=== PATIENT | female | born 1945 | race Caucasian/White ===

== ENCOUNTER 2020-12-22 14:45 | Inpatient (IN) ==
--- NOTE | 2020-12-22 15:19 | Emergency Department Note ---
Neuro HPI General Chief Complaint: Stroke Symptoms Stated Complaint: aphasia this am @ 1100 this AM Time Seen by Provider: 12/22/20 14:55 Source: patient Mode of arrival: ambulatory Limitations: no limitations History of Present Illness HPI Narrative: 75-year-old female with past medical history of CAD with 2 stents , hypertension, COPD, rheumatoid arthritis, and diabetes presenting with aphasia. Patient's daughter noted around 10:30 AM this morning she developed expressive aphasia that lasted for about 90 minutes. Patient recalls the incident and states she knew what she wanted to say but could not get the right words out. Symptoms resolved spontaneously. Patient currently endorses a mild headache. Daughter also feels like her gait has been unsteady today which is new. Patient denies blurry vision, unilateral weakness, paresthesias, chest pain, abdominal pain, nausea, vomiting, dysuria, or melena. Denies any prior history of CVA. She takes a full 325 mg aspirin daily. Not on anticoagulation. No recent cough, fever, chills, or sick contacts. She received the first dose of the Moderna COVID vaccine about 1 month ago. Related Data Home Medications Medication Instructions Recorded Confirmed losartan 25 mg PO BID 06/16/19 12/08/20 pravastatin 80 mg PO HS 06/16/19 12/08/20 carvedilol 12.5 mg tablet 12.5 mg PO Q12H tab 12/08/20 12/08/20 cholecalciferol (vitamin D3) PO 12/08/20 12/08/20 empagliflozin 10 mg tablet 10 mg PO QDAY tab 12/08/20 12/08/20 folic acid PO 12/08/20 12/08/20 furosemide 20 mg tablet 20 mg PO QDAY tab 12/08/20 12/08/20 isosorbide mononitrate 30 mg 30 mg PO QDAY tab 12/08/20 12/08/20 tablet,extended release 24 hr leflunomide 20 mg tablet 20 mg PO QDAY tab 12/08/20 12/08/20 nitroglycerin 0.4 mg sublingual 0.4 mg SUBLINGUAL Q5-15M PRN tab 12/08/20 12/08/20 tablet potassium chloride 10 mEq 10 meq PO QDAY tab 12/08/20 12/08/20 tablet,extended release prednisone 5 mg tablet 5 mg PO QDAY PRN tab 12/08/20 12/08/20 vitamin a PO 12/08/20 Previous Rx's Medication Instructions Recorded conjugated estrogens 0.625 mg/gram 0.625 mg VAGINAL QDAY #30 g 12/08/20 vaginal cream Allergies Allergy/AdvReac Type Severity Reaction Status Date / Time amlodipine Allergy Unknown Unknown Verified 12/22/20 14:49 metformin Allergy Unknown Unknown Verified 12/22/20 14:49 Iodinated Contrast Media AdvReac Mild Sneezing Verified 12/22/20 14:49 rosuvastatin [From Crestor] AdvReac Mild Muscle Pain Verified 12/22/20 14:49 Review of Systems ROS ROS Narrative: Narrative: Constitutional: Reports weakness; Denies fever and chills Eyes: Denies vision change ENT ED: Denies ear pain and throat pain Cardiovascular: Denies chest pain, palpitations, edema and syncope Respiratory: Denies shortness of breath and cough Gastrointestinal: Denies abdominal pain, nausea and vomiting Genitourinary: Denies dysuria and frequency Musculoskeletal: Denies back pain and joint swelling Integumentary: Denies rash and lesions Neurological: Reports headache, weakness and abnormal gait; Denies numbness, paresthesias and dizziness Psychiatric: Denies anxiety and depression Endocrine: Denies fatigue and heat or cold intolerance Hematological/Lymphatic: Denies easy bleeding and easy bruising PFSH Narrative Patient History Narrative: Narrative: Medical/Surgical/Family History All Active Problems (Updated 12/22/20 @ 17:14 by Zoltan Hernandez MD) TIA (transient ischemic attack) (Acute) Gastrocnemius equinus (Acute) Posterior tibial tendon dysfunction, bilateral (Acute) Plantar fascial fibromatosis of right foot (Acute) Overweight (Acute) Osteoporosis (Acute) Obstructive sleep apnea (Acute) Primary osteoarthritis of right knee (Acute) Primary osteoarthritis of hand (Acute) Other chondrocalcinosis, multiple sites (Acute) 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 (Acute) Neck pain (Acute) Microcytic anemia (Acute) Kidney stone (Acute) Intestinal bleeding (Acute) Heart attack (Acute) Gall bladder disease (Acute) Emphysema lung (Acute) Dizzy spells (Acute) Chest pain (Acute) Diverticulitis (Acute) Cataract (Acute) Psoriasis (Acute) Lumbago (Acute) CAD (coronary artery disease) (Acute) Thalassemia minor (Acute) Hyperlipidemia (Acute) Fatigue (Acute) Rheumatoid arthritis (Chronic) Diabetes mellitus, type II (Chronic) COPD (chronic obstructive pulmonary disease) (Chronic) CVD (cardiovascular disease) (Chronic) Hypertension (Chronic) Aphthous ulcer (Chronic) Head injury (Chronic) Fall (Chronic) Unstable angina pectoris (Chronic) Medical History (Updated 12/22/20 @ 17:14 by Zoltan Hernandez MD) Aphthous ulcer CAD (coronary artery disease) Cataract Chest pain COPD (chronic obstructive pulmonary disease) CVD (cardiovascular disease) Diabetes mellitus, type II Diverticulitis Dizzy spells Emphysema lung Fall Fatigue Gall bladder disease Gastrocnemius equinus bilateral Head injury Heart attack History of breast implant removal History of left heart catheterization Hyperlipidemia Hypertension Intestinal bleeding Kidney stone Lumbago Microcytic anemia Neck pain 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 Obstructive sleep apnea Osteoporosis Other chondrocalcinosis, multiple sites Overweight 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 tendon dysfunction, bilateral Primary osteoarthritis of hand Primary osteoarthritis of right knee Psoriasis Rheumatoid arthritis Thalassemia minor Unstable angina pectoris Surgical History (Updated 12/10/20 @ 15:57 by Jaimee Starr) History of adenoidectomy History of appendectomy History of arthroscopy of both knees History of bilateral oophorectomy History of breast augmentation History of bunionectomy History of cataract extraction History of cholecystectomy 2018 History of colectomy History of colonoscopy (~02/22/18) History of fusion of cervical spine History of heart artery stent x2 History of right heart catheterization History of tonsillectomy History of total abdominal hysterectomy History of total left knee replacement Family History (Updated 12/08/20 @ 15:42 by Esvin Castro MD) Mother Diabetes mellitus, type I CAD (coronary artery disease) Father Hypertension Stroke Brother Myocardial infarct Social History Smoking Status: Former smoker (16 year pack history) Alcohol Intake Frequency: holiday/special occasion only Substance Use: marijuana (takes an edible at night occasionally) Exam Narrative Narrative: Narrative: General Limitations: no limitations General appearance: Present alert and in no apparent distress Head Head: Present atraumatic and normocephalic Eye Eye: Present normal appearance, PERRL and EOMI; Absent scleral icterus and conjunctival injection ENT ENT: Present normal oropharynx and mucous membranes moist Neck Neck: Present full ROM and trachea midline; Absent meningismus, lymphadenopathy and thyromegaly Chest Chest: Present symmetric chest wall rise Respiratory Respiratory: Present normal lung sounds bilaterally; Absent respiratory distress, wheezes, stridor, accessory muscle use and prolonged expiratory phase Cardiovascular Cardiovascular: Present regular rate and normal rhythm; Absent systolic murmur and diastolic murmur Adbominal Abdominal: Present soft; Absent distention, tenderness, guarding, rebound, rigidity, organomegaly and mass Extremities Extremities: Absent pedal edema, pretibial edema and calf tenderness Back Back: Absent CVA tenderness (R), CVA tenderness (L) and spinous process tenderness Neurological Neurological: Present alert, oriented X3 and CN II-XII intact Expanded Neurological Patient oriented to: Present person, place and time Speech: Present fluid speech; Absent expressive aphasia, slurred and dysarthria CEREBELLAR FUNCTION: finger to nose: Normal and heel to alford: Normal CEREBELLAR FUNCTION: other (+mild gait ataxia) Motor strength - LUE: 5/5 Motor strength - RUE: 5/5 Motor strength - LLE: 5/5 Motor strength - RLE: 5/5 UPPER MOTOR NEURON EXAM: michelle neglect: Normal SENSORY EXAM UPPER EXTREMITY: Abnormal Left: light touch SENSORY EXAM LOWER EXTREMITY: Normal: light touch Coma Scale Eye Opening: Spontaneous Coma Scale Motor Response: Obeys Commands Coma Scale Verbal Response: Oriented Coma Scale Total: 15 Psychiatric Psychiatric: Present normal affect and normal mood Skin Skin: Present warm (WNL) and dry Course Consultations Consultation #1: Dr. Salgado, neurology: agrees with admission for TIA workup Time: 16:03 Consultation #2: Dr. Andres, hospitalist Time: 16:23 Vital Signs Vital signs: Vital Signs Temperature 98.1 F 12/22/20 14:46 Pulse Rate 75 12/22/20 14:46 Respiratory Rate 18 12/22/20 14:46 Blood Pressure 141/86 12/22/20 14:46 Pulse Oximetry (%) 97 12/22/20 14:46 Temperature 98.1 F 12/22/20 14:46 Pulse Rate 73 12/22/20 17:06 Respiratory Rate 18 12/22/20 14:46 Blood Pressure 109/84 12/22/20 17:01 Pulse Oximetry (%) 95 12/22/20 17:06 [facility] Narrative Medical decision making narrative: 75-year-old female presenting with transient aphasia. Symptoms have now resolved and she is at her neurologic baseline. CT brain without contrast shows no acute findings. Labs within normal limits. Discussed with Dr. Damian of neurology who agrees with admission for TIA work-up. Patient endorsed to Dr. Andres asked for admission. Lab Data Lab results reviewed: Yes I reviewed the patient's lab results. Result diagrams: 12/22/20 15:37 12/22/20 15:07 Labs: Lab Results 12/22/20 12/22/20 12/22/20 Range/Units 15:07 15:37 15:37 WBC 5.5 (4.5-11.0) K/mcL RBC 5.48 H (3.59-5.38) M/mcL Hgb 11.7 (11.2-15.7) g/dL Hct 37.7 (34.1-44.9) % MCV 68.8 L (80.0-100.0) fL MCH 21.4 L (26.0-34.0) pg MCHC 31.0 (31.0-36.0) g/dL RDW 16.4 H (11.5-14.5) % Plt Count 166 (140-440) K/mcL MPV (7.4-10.4) fL Neut % (Auto) 46.3 (38.0-78.0) % Lymph % (Auto) 29.5 (15.5-49.0) % [place] % (Auto) 18.9 H (1.0-12.0) % Eos % (Auto) 3.8 (0.0-7.0) % Baso % (Auto) 1.5 (0.0-2.0) % Lymph # (Auto) 1.62 (1.50-4.80) K/mcL [place] # (Auto) 1.04 H (0.10-0.90) K/mcL Eos # (Auto) 0.21 (0.00-0.70) K/mcL Baso # (Auto) 0.08 (0.00-0.30) K/mcL Absolute Neutrophils 2.54 (1.80-8.00) K/mcL Sodium 139 (133-145) mmol/L Potassium 3.6 (3.3-5.1) mmol/L Chloride 101 (96-108) mmol/L Carbon Dioxide 24 (22-30) mmol/L Anion Gap 14.0 (8.0-16.0) BUN 16 (8-23) mg/dL Creatinine 0.7 (0.6-1.1) mg/dL GFR Calculation 85 Glucose 111 H (70-105) mg/dL Calcium 9.2 (8.6-10.4) mg/dL Total Bilirubin 0.2 (0.1-1.0) mg/dL AST 17 (<32) U/L ALT 17 (<40) U/L Alkaline Phosphatase 91 (39-117) U/L Troponin T < 0.01 (<0.03) ng/mL Total Protein 6.8 (5.9-8.4) gm/dL Albumin 4.1 (3.2-5.2) gm/dL Globulin 2.7 (2.2-3.7) gm/dL Albumin/Globulin Ratio 1.5 (1.0-2.3) Urine Color Urine Appearance (Clear) Urine pH (5.0-9.0) Ur Specific [place] (1.000-1.035) Urine Protein (Negative) mg/dL Urine Glucose (UA) (Negative) mg/dL Urine Ketones (Negative) mg/dL Urine Occult Blood (Negative) mg/dL Urine Nitrate (Negative) Urine Bilirubin (Negative) mg/dL Urine Urobilinogen mg/dL Ur Leukocyte Esterase (Negative) /uL Urine RBC (0-3) /hpf Urine WBC (0-4) /hpf Ur Squamous Epith Cells (0-4) /hpf Urine Bacteria (0) /hpf Urine Mucus (None) /hpf Ur Culture Indicated? 12/22/20 Range/Units 15:40 WBC (4.5-11.0) K/mcL RBC (3.59-5.38) M/mcL Hgb (11.2-15.7) g/dL Hct (34.1-44.9) % MCV (80.0-100.0) fL MCH (26.0-34.0) pg MCHC (31.0-36.0) g/dL RDW (11.5-14.5) % Plt Count (140-440) K/mcL MPV (7.4-10.4) fL Neut % (Auto) (38.0-78.0) % Lymph % (Auto) (15.5-49.0) % [place] % (Auto) (1.0-12.0) % Eos % (Auto) (0.0-7.0) % Baso % (Auto) (0.0-2.0) % Lymph # (Auto) (1.50-4.80) K/mcL [place] # (Auto) (0.10-0.90) K/mcL Eos # (Auto) (0.00-0.70) K/mcL Baso # (Auto) (0.00-0.30) K/mcL Absolute Neutrophils (1.80-8.00) K/mcL Sodium (133-145) mmol/L Potassium (3.3-5.1) mmol/L Chloride (96-108) mmol/L Carbon Dioxide (22-30) mmol/L Anion Gap (8.0-16.0) BUN (8-23) mg/dL Creatinine (0.6-1.1) mg/dL GFR Calculation Glucose (70-105) mg/dL Calcium (8.6-10.4) mg/dL Total Bilirubin (0.1-1.0) mg/dL AST (<32) U/L ALT (<40) U/L Alkaline Phosphatase (39-117) U/L Troponin T (<0.03) ng/mL Total Protein (5.9-8.4) gm/dL Albumin (3.2-5.2) gm/dL Globulin (2.2-3.7) gm/dL Albumin/Globulin Ratio (1.0-2.3) Urine Color Straw Urine Appearance Clear (Clear) Urine pH 6.0 (5.0-9.0) Ur Specific [place] 1.014 (1.000-1.035) Urine Protein Negative (Negative) mg/dL Urine Glucose (UA) >=500 A (Negative) mg/dL Urine Ketones Negative (Negative) mg/dL Urine Occult Blood Negative (Negative) mg/dL Urine Nitrate Negative (Negative) Urine Bilirubin Negative (Negative) mg/dL Urine Urobilinogen Negative mg/dL Ur Leukocyte Esterase Negative (Negative) /uL Urine RBC 0 (0-3) /hpf Urine WBC < 1 (0-4) /hpf Ur Squamous Epith Cells < 1 (0-4) /hpf Urine Bacteria None (0) /hpf Urine Mucus Few A (None) /hpf Ur Culture Indicated? No Radiology Data Radiology results reviewed: Yes I reviewed the patient's radiology results. Radiology results narrative: Ordering Physician: Zoltan Hernandez M.D. Date of Service: 12/22/20 Procedure(s): CT head/brain wo con Accession Number(s): [id number] CLINICAL INFORMATION: Transient aphasia COMPARISON: None. TECHNIQUE: 2.5 mm helical slices were obtained in the skull base to vertex. Following reconstruction, axial reformatted images were reviewed at bone and parenchymal windows. The exam was performed using radiation dose optimization techniques including, but not limited to, automated exposure control, adjustment of the mA and/or kV according to patient size and use of iterative reconstruction technique. FINDINGS: The ventricles, sulci, fissures, and cisterns are symmetrically enlarged compatible with mild age-related atrophy. No extra-axial fluid collections are identified. Mild patchy chronic ischemic changes, in the deep cerebral white matter, are expected for age. There is no hemorrhage, mass effect, or edema. Bone windows show no osseous abnormality. IMPRESSION: Mild atrophy and chronic ischemic changes in the deep cerebral white matter-expected for age. No acute findings Interpreted and Authenticated by: Reid Saravia 12/22/20 Ordering Physician: Zoltan Hernandez M.D. Date of Service: 12/22/20 Procedure(s): XR chest 2V Accession Number(s): [id number] CLINICAL INFORMATION: aphasia, hx of CAD COMPARISON: 10/09/2020 FINDINGS: Heart size, mediastinum and pulmonary vessels are unremarkable. Partially calcified benign nodule in the anterior segment right upper lobe has maintained stability should be considered a benign granuloma.. No other pulmonary abnormalities. No effusions. IMPRESSION: Negative chest Interpreted and Authenticated by: Reid Saravia 12/22/20 EKG Data EKG #1: EKG attestation: Yes I reviewed and interpreted this EKG. and Yes There are no EKG findings of acute coronary syndrome EKG results narrative: Normal sinus rhythm at [address] elevations or T wave inversions. Normal QRS. Interpretation: no acute changes and normal EKG Pulse Oximetry Data Pulse Ox %: 97 Interpretation: normal Discharge Plan Patient/Caregiver Discharge Instructions Pt seen by [facility]ILER REPAIRMAN/PA only: No Clinical Impression: TIA (transient ischemic attack) Patient Disposition: Xfer As Inpt ([facility]) Condition: Fair Follow up with: Esvin Castro MD [Primary Care Provider] - Prescriptions: No Action carvedilol 12.5 mg tablet 12.5 mg PO Q12H RF: 0 furosemide 20 mg tablet 20 mg PO QDAY RF: 0 potassium chloride 10 mEq tablet extended release 10 meq PO QDAY RF: 0 nitroglycerin 0.4 mg tablet, sublingual 0.4 mg sublingual Q5-15M PRN (Reason: chest pain) RF: 0 Jardiance 10 mg tablet 10 mg PO QDAY RF: 0 leflunomide 20 mg tablet 20 mg PO QDAY RF: 0 isosorbide mononitrate 30 mg tablet extended release 24 hr 30 mg PO QDAY RF: 0 folic acid PO RF: 0 cholecalciferol (vitamin D3) PO RF: 0 vitamin a PO RF: 0 prednisone 5 mg tablet 5 mg PO QDAY PRNRF: 0 Premarin 0.625 mg/gram cream 0.625 mg vaginal QDAY Qty: 30 RF: 0 losartan 25 MG tablet 25 mg PO BID RF: 0 pravastatin 40 MG tablet 80 mg PO HS RF: 0
--- NOTE | 2020-12-22 15:48 | XRay Report ---
CLINICAL INFORMATION: aphasia, hx of CAD COMPARISON: 10/09/2020 FINDINGS: Heart size, mediastinum and pulmonary vessels are unremarkable. Partially calcified benign nodule in the anterior segment right upper lobe has maintained stability should be considered a benign granuloma.. No other pulmonary abnormalities. No effusions. IMPRESSION: Negative chest Interpreted and Authenticated by: Reid Saravia 12/22/20
--- NOTE | 2020-12-22 15:49 | Cat Scan Report ---
CLINICAL INFORMATION: Transient aphasia COMPARISON: None. TECHNIQUE: 2.5 mm helical slices were obtained in the skull base to vertex. Following reconstruction, axial reformatted images were reviewed at bone and parenchymal windows. The exam was performed using radiation dose optimization techniques including, but not limited to, automated exposure control, adjustment of the mA and/or kV according to patient size and use of iterative reconstruction technique. FINDINGS: The ventricles, sulci, fissures, and cisterns are symmetrically enlarged compatible with mild age-related atrophy. No extra-axial fluid collections are identified. Mild patchy chronic ischemic changes, in the deep cerebral white matter, are expected for age. There is no hemorrhage, mass effect, or edema. Bone windows show no osseous abnormality. IMPRESSION: Mild atrophy and chronic ischemic changes in the deep cerebral white matter-expected for age. No acute findings Interpreted and Authenticated by: Reid Saravia 12/22/20
[2020-12-22 16:26] LABS: Appearance,Urine CLEAR (Clear); Bilirubin,Urine Negative (Negative); Color,Urine STRAW; Culture Indicated,Urine No; Glucose,Urine (UA) >=500 mg/dL (Negative); Ketones,Urine Negative (Negative); Leukocyte Esterase,Urine Negative /uL (Negative); Mucus,Urine FEW /hpf; Nitrate,Urine Negative (Negative); Protein,Urine Negative (Negative); Specific Gravity,Urine 1.014 (1.000-1.035); Urine Blood Negative (Negative); Urine RBC 0 /hpf (0-3); Urine Squamous Epithelial Cell < 1 /hpf (0-4); Urine WBC < 1 /hpf (0-4); Urobilinogen,Urine Negative
[2020-12-22 16:29] LABS: ALT/SGPT 17 U/L (<40); AST/SGOT 17 U/L (<32); Albumin 4.1 gm/dL (3.2-5.2); Albumin/Globulin Ratio 1.5 (1.0-2.3); Alkaline Phosphatase 91 U/L (39-117); Bilirubin,Total 0.2 mg/dL (0.1-1.0); Blood Urea Nitrogen 16 mg/dL (8-23); Calcium 9.2 mg/dL (8.6-10.4); Carbon Dioxide 24 mmol/L (22-30); Chloride 101 mmol/L (96-108); Globulin 2.7 gm/dL (2.2-3.7); Glomerular Filtration Rate 85; Glucose 111 mg/dL (70-105)
[2020-12-22 16:39] LABS: Basophils # (Auto) 0.08 K/mcL (0.00-0.30); Basophils % (Auto) 1.5 % (0.0-2.0); Eosinophils # (Auto) 0.21 K/mcL (0.00-0.70); Eosinophils % (Auto) 3.8 % (0.0-7.0); Hematocrit 37.7 % (34.1-44.9); Hemoglobin 11.7 g/dL (11.2-15.7); Lymphocytes # (Auto) 1.62 K/mcL (1.50-4.80); Lymphocytes % (Auto) 29.5 % (15.5-49.0); Mean Cell Volume 68.8 fL (80.0-100.0); Monocytes # (Auto) 1.04 K/mcL (0.10-0.90); Monocytes % (Auto) 18.9 % (1.0-12.0); Neutrophils % (Auto) 46.3 % (38.0-78.0); Platelet Count 166 K/mcL (140-440); RBC 5.48 M/mcL (3.59-5.38); Red Cell Distribution Width 16.4 % (11.5-14.5); WBC 5.5 K/mcL (4.5-11.0)
--- NOTE | 2020-12-22 16:42 | Internal Med History&Physical ---
HPI History of Present Illness Patient information: Note initiated : 12/22/20 at 4:38 pm Service Date, if different from initiated Date: [] Patient: Itzel Buckley 75 y/o F admitted on for aphasia this am @ 1100 this AM. Chief Complaint: [aphasia ] History of present illness: Ms. Charles Mccoy is a 75 year old female with a history of hypertension, type II diabetes mellitus, rheumatoid arthritis, coronary artery disease s/p stent, thalassemia minor, obstructive sleep apnea currently no on CPAP who presented to the ED for expressive aphasia that started this morning at about 10:30 AM and lasted about one hour. Yesterday the patient had a milder episode, she also had some difficulty walking that resolved. The patient is accompanied by her daughter who witnessed the expressive aphasia today. In the ED, the patient had a noncontrast CT head which did not show any acute changes, there was mild atrophy and chronic ischemic changes in the deep cerebral white matter expected for age. A chest x-ray was negative. CBC and chemistry panel were similar to prior results. The patient does not have a history of stroke, she says that she takes a daily aspirin 325 mg per day. She denies palpitations, chest pain, lightheadedness. She did have a recent headache that resolved. Hospital medicine was asked to admit the patient for TIA evaluation. We discussed the usual work-up for TIA, the patient is not sure if she wants to have an MRI brain due to cost. She is okay with echo and carotid artery ultrasound as well as a slurry man. Review of symptoms Constitutional: no fever, fatigue, or weight loss Eyes: no vision changes or pain Cardiovascular: no chest pain, no palpitations Respiratory: no cough or dyspnea Gastrointestinal: no abdominal pain, no nausea, vomiting, or diarrhea Genitourinary: no dysuria or difficulty voiding Musculoskeletal: no arthralgia or myalgia Integumentary: no skin lesion or wound Neurological: Positive for expressive aphasia and ataxia that have resolved. Psychiatric: no anxiety or depression Physical exam Head: Atraumatic, normal inspection. Eyes: normal appearance, no scleral icterus. Neck: full ROM Respiratory: no respiratory distress. Cardiovascular: normal rate and rhythm, S1, S2. GI/Abdominal: soft, nontender, no guarding. Extremities: full range of motion, nontender. Neurological: CN II-XII intact, intact motor, intact sensation. Psychiatric: normal mood. Skin: warm, normal color PFSH PFSH All Active Problems (Updated 12/22/20 @ 17:14 by Zoltan Hernandez MD) TIA (transient ischemic attack) (Acute) Gastrocnemius equinus (Acute) Posterior tibial tendon dysfunction, bilateral (Acute) Plantar fascial fibromatosis of right foot (Acute) Overweight (Acute) Osteoporosis (Acute) Obstructive sleep apnea (Acute) Primary osteoarthritis of right knee (Acute) Primary osteoarthritis of hand (Acute) Other chondrocalcinosis, multiple sites (Acute) 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 (Acute) Neck pain (Acute) Microcytic anemia (Acute) Kidney stone (Acute) Intestinal bleeding (Acute) Heart attack (Acute) Gall bladder disease (Acute) Emphysema lung (Acute) Dizzy spells (Acute) Chest pain (Acute) Diverticulitis (Acute) Cataract (Acute) Psoriasis (Acute) Lumbago (Acute) CAD (coronary artery disease) (Acute) Thalassemia minor (Acute) Hyperlipidemia (Acute) Fatigue (Acute) Rheumatoid arthritis (Chronic) Diabetes mellitus, type II (Chronic) COPD (chronic obstructive pulmonary disease) (Chronic) CVD (cardiovascular disease) (Chronic) Hypertension (Chronic) Aphthous ulcer (Chronic) Head injury (Chronic) Fall (Chronic) Unstable angina pectoris (Chronic) Medical History (Updated 12/22/20 @ 17:14 by Zoltan Hernandez MD) Aphthous ulcer CAD (coronary artery disease) Cataract Chest pain COPD (chronic obstructive pulmonary disease) CVD (cardiovascular disease) Diabetes mellitus, type II Diverticulitis Dizzy spells Emphysema lung Fall Fatigue Gall bladder disease Gastrocnemius equinus bilateral Head injury Heart attack History of breast implant removal History of left heart catheterization Hyperlipidemia Hypertension Intestinal bleeding Kidney stone Lumbago Microcytic anemia Neck pain 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 Obstructive sleep apnea Osteoporosis Other chondrocalcinosis, multiple sites Overweight 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 tendon dysfunction, bilateral Primary osteoarthritis of hand Primary osteoarthritis of right knee Psoriasis Rheumatoid arthritis Thalassemia minor Unstable angina pectoris Surgical History (Updated 12/10/20 @ 15:57 by Jaimee Starr) History of adenoidectomy History of appendectomy History of arthroscopy of both knees History of bilateral oophorectomy History of breast augmentation History of bunionectomy History of cataract extraction History of cholecystectomy 2018 History of colectomy History of colonoscopy (~02/22/18) History of fusion of cervical spine History of heart artery stent x2 History of right heart catheterization History of tonsillectomy History of total abdominal hysterectomy History of total left knee replacement Family History (Updated 12/08/20 @ 15:42 by Esvin Castro MD) Mother Diabetes mellitus, type I CAD (coronary artery disease) Father Hypertension Stroke Brother Myocardial infarct Social History (Updated 12/08/20 @ 15:17 by Michelle Esparza CMA) household members: spouse and family housing: house lives independently: Yes marital status: 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 smoking status: Former smoker smoking status stop date: 07/29/82 alcohol intake frequency: holiday/special occasion only substance use type: marijuana (takes an edible at night occasionally) MEDS/ALLERGIES Home Medications and Allergies Home Medications Medication Instructions Recorded Confirmed Type losartan 25 mg PO BID 06/16/19 12/22/20 History pravastatin 80 mg PO HS 06/16/19 12/08/20 History conjugated estrogens 0.625 mg/gram 0.625 mg VAGINAL QDAY #30 g 12/08/20 12/08/20 Rx vaginal cream empagliflozin 10 mg tablet 10 mg PO QDAY tab 12/08/20 12/08/20 History folic acid PO 12/08/20 12/08/20 History isosorbide mononitrate 30 mg 30 mg PO QDAY tab 12/08/20 12/08/20 History tablet,extended release 24 hr leflunomide 20 mg tablet 20 mg PO QDAY tab 12/08/20 12/22/20 History nitroglycerin 0.4 mg sublingual 0.4 mg SUBLINGUAL Q5-15M PRN tab 12/08/20 12/08/20 History tablet potassium chloride 10 mEq 10 meq PO QDAY tab 12/08/20 12/22/20 History tablet,extended release aspirin [Aspir-81] 81 mg PO QDAY 12/22/20 12/22/20 History carvedilol 25 mg PO BID 12/22/20 12/22/20 History empagliflozin [Jardiance] 10 mg PO DAILY 12/22/20 12/22/20 History furosemide [Lasix] 20 mg PO QAM 12/22/20 12/22/20 History Allergies Allergy/AdvReac Type Severity Reaction Status Date / Time amlodipine Allergy Unknown Unknown Verified 12/22/20 14:49 metformin Allergy Unknown Unknown Verified 12/22/20 14:49 Iodinated Contrast Media AdvReac Mild Sneezing Verified 12/22/20 14:49 rosuvastatin [From Crestor] AdvReac Mild Muscle Pain Verified 12/22/20 14:49 EXAM Constitutional Vitals: Temp Pulse Resp BP Pulse Ox 98.1 F 75 18 127/96 94 12/22/20 14:46 12/22/20 14:46 12/22/20 14:46 12/22/20 16:27 12/22/20 16:27 DATA Data Completed and Pending Labs: Labs from last 24 hours 12/22/20 12/22/20 12/22/20 15:40 15:37 15:37 WBC Pending RBC Pending Hgb Pending Hct Pending MCV Pending MCH Pending MCHC Pending RDW Pending Plt Count Pending MPV Pending Neut % (Auto) Pending Sodium Potassium Chloride Carbon Dioxide Anion Gap BUN Creatinine GFR Calculation Glucose Calcium Total Bilirubin AST ALT Alkaline Phosphatase Troponin T < 0.01 Total Protein Albumin Globulin Albumin/Globulin Ratio Urine Color Straw Urine Appearance Clear Urine pH 6.0 Ur Specific [place] 1.014 Urine Protein Negative Urine Glucose (UA) >=500 A Urine Ketones Negative Urine Occult Blood Negative Urine Nitrate Negative Urine Bilirubin Negative Urine Urobilinogen Negative Ur Leukocyte Esterase Negative Urine RBC 0 Urine WBC < 1 Ur Squamous Epith Cells < 1 Urine Bacteria None Urine Mucus Few A Ur Culture Indicated? No 12/22/20 15:07 WBC RBC Hgb Hct MCV MCH MCHC RDW Plt Count MPV Neut % (Auto) Sodium 139 Potassium 3.6 Chloride 101 Carbon Dioxide 24 Anion Gap 14.0 BUN 16 Creatinine 0.7 GFR Calculation 85 Glucose 111 H Calcium 9.2 Total Bilirubin 0.2 AST 17 ALT 17 Alkaline Phosphatase 91 Troponin T Total Protein 6.8 Albumin 4.1 Globulin 2.7 Albumin/Globulin Ratio 1.5 Urine Color Urine Appearance Urine pH Ur Specific [place] Urine Protein Urine Glucose (UA) Urine Ketones Urine Occult Blood Urine Nitrate Urine Bilirubin Urine Urobilinogen Ur Leukocyte Esterase Urine RBC Urine WBC Ur Squamous Epith Cells Urine Bacteria Urine Mucus Ur Culture Indicated? A/P Narrative A/P Narrative: Assessment: 75 year old female with a history of CAD s/p stents, hypertension, RA, OLIVIA admitted after an episode of expressive aphasia that lasted about one hour and resolved. The patient has a similar but milder episode the day prior to admission. #Transient ischemic attack less likely small ischemic stroke #Resolved expressive aphasia #Resolved ataxia #Hypertension #Diabetes mellitus #CAD s/p stents, stable #Rheumatoid arthritis #Obstructive sleep apnea not on CPAP at home Plan -PCU status for neuro checks/NIH Stroke Scale -Plavix 75 mg daily, hold home Aspirin. -Continue home Pravastatin. -Permissive blood pressure for now, Labetalol IV prn for extreme BP. -Continue home Jardiance, Lasix, Leflunomide, Imdur, and Nitro prn. -Hold home Coreg and Losartan. -The patient will consider MRI brain to evaluate for small infarct. -TTE ordered. -Lipid panel in AM, recent Hgb A1C was 5.9 -hop weigher -DVT ppx: Lovenox -Code status: Full -Disposition: home when stable, outpatient slurry man if no afib/aflutter events noted during the hospital stay. Time Spent With Patient Time: Total time spent is greater than 50% in coordination of care (as documented) at patient's floor/unit and/or counseling patient: QUALITY Stroke Symptom Onset Unknown: No
[2020-12-22] MEDS ORDERED: IOPAMIDOL 100 ML BOTTLE IV ONE (19:44)
[2020-12-22] MEDS ORDERED: ONDANSETRON 4 MG/2 ML VIAL IV PRN (20:01)
[2020-12-22] MEDS ORDERED: LACTULOSE 20 GM/30 ML ORAL.SOL PO PRN (20:01)
[2020-12-22] MEDS ORDERED: LABETALOL 5 MG/ML ML IV PRN (20:01)
[2020-12-22] MEDS ORDERED: SENNOSIDES 1 TABLET PO PRN (20:01)
[2020-12-22] MEDS ORDERED: NITROGLYCERIN 0.4 MG TAB.SUBL SL PRN (20:29)
[2020-12-22] MEDS ORDERED: PRAVASTATIN 40 MG TABLET PO SCH (21:00)
[2020-12-22] MEDS: DOCUSATE SODIUM 100 MG CAPSULE PO SCH (21:41)
[2020-12-22] MEDS: CLOPIDOGREL 75 MG TABLET PO SCH (21:45)
[2020-12-22] MEDS: SIMVASTATIN 40 MG TABLET PO SCH (21:45)
[2020-12-22] MEDS: 0.9 % SODIUM CHLORIDE 10 ML SYRINGE IV SCH (21:45)
--- NOTE | 2020-12-23 02:23 | Ultrasound Report ---
CLINICAL INFORMATION: TIA COMPARISON: None. TECHNIQUE: Spectral Doppler velocity measurements were obtained in the proximal, mid and distal common and internal carotid, both vertebral and proximal external carotid arteries bilaterally. Supplemental color and power Doppler imaging was also obtained to optimize stenosis detection. In reporting, any internal carotid stenosis was indirectly quantified comparing the distal internal carotid velocity. For ratio comparison, the internal carotid artery, at the level of stenosis, was utilized in the numerator and the normal distal internal carotid artery velocity was utilized as the denominator. Velocities are validated with angiographic measurements extrapolated from diameter data - as defined by the Society of Radiologists in Ultrasound Consensus Conference .Radiology 2003; 229; 340 - 346. FINDINGS: See worksheet by the technologist for velocities in PACS IMPRESSION: 1. Right common and external carotid arteries are widely patent. Mild elevation of the right internal carotid velocity corresponds with 50% stenosis. This is likely spuriously elevated due to vessel tortuosity. 2. The left common and external carotid arteries are widely patent. Systolic blood velocity elevations in the internal carotid artery corresponding with a 50% stenosis. This is likely related to tortuosity however. With patient history of TIA, suggest CT cervical carotid arteriogram for better evaluation Please correlate with CTA CT Angiography or MRA MR Angiography if surgery is contemplated. Interpreted and Authenticated by: Reid Saravia 12/23/20
[2020-12-23] MEDS: 0.9 % SODIUM CHLORIDE 10 ML SYRINGE IV SCH ×3 (06:21→21:11)
[2020-12-23 07:35] LABS: ALT/SGPT 13 U/L (<40); AST/SGOT 13 U/L (<32); Albumin 3.9 gm/dL (3.2-5.2); Albumin/Globulin Ratio 1.7 (1.0-2.3); Alkaline Phosphatase 70 U/L (39-117); Bilirubin,Direct < 0.2 mg/dL (0-0.3); Bilirubin,Total 0.2 mg/dL (0.1-1.0); Blood Urea Nitrogen 18 mg/dL (8-23); Calcium 8.9 mg/dL (8.6-10.4); Carbon Dioxide 24 mmol/L (22-30); Chloride 105 mmol/L (96-108); Globulin 2.3 gm/dL (2.2-3.7); Glomerular Filtration Rate 89; Glucose 93 mg/dL (70-105); HDL Cholesterol 60 mg/dL (>40); LDL Cholesterol,Calculated 94 mg/dL (<100); Lactate Dehydrogenase 146 U/L (135-225); Non-HDL Cholesterol 110 mg/dL (<130); Phosphorous 2.9 mg/dL (2.5-4.5); Triglycerides 82 mg/dL (<150); Uric Acid 1.9 mg/dL (2.5-8.0)
[2020-12-23] MEDS: ACETAMINOPHEN 325 MG TABLET PO PRN ×2 (08:36→21:10)
[2020-12-23] MEDS: CLOPIDOGREL 75 MG TABLET PO SCH (08:37)
[2020-12-23] MEDS: POTASSIUM CHLORIDE 10 MEQ TABLET PO SCH (08:37)
[2020-12-23] MEDS: FUROSEMIDE 20 MG TABLET PO SCH (08:37)
[2020-12-23] MEDS: ENOXAPARIN 40 MG/0.4 ML SYRINGE SQ SCH (08:37)
[2020-12-23] MEDS: ASPIRIN 81 MG TAB.CHEW PO SCH (08:37)
[2020-12-23] MEDS: DOCUSATE SODIUM 100 MG CAPSULE PO SCH ×2 (08:38→21:01)
[2020-12-23] MEDS ORDERED: ISOSORBIDE MONONITRATE 30 MG TAB.XL.24H PO SCH (09:00)
[2020-12-23] MEDS ORDERED: methylPREDNISolone SOD SUCC 40 MG/ML VIAL IV ONE ×2 (10:04→15:00)
[2020-12-23] MEDS ORDERED: diphenhydrAMINE 50 MG/ML VIAL IV ONE ×3 (10:04→15:00)
[2020-12-23] MEDS: Empagliflozin 10 mg tablet PO SCH (10:06)
[2020-12-23] MEDS: CARVEDILOL 12.5 MG TABLET PO SCH ×2 (10:38→11:12)
[2020-12-23] MEDS: LOSARTAN 25 MG TABLET PO SCH ×2 (10:38→21:10)
[2020-12-23] MEDS ORDERED: CARVEDILOL 12.5 MG TABLET PO ONE (10:54)
[2020-12-23] MEDS: LEFLUNOMIDE 20 MG TABLET PO SCH (11:13)
--- NOTE | 2020-12-23 12:06 | Magnetic Resonance Report ---
CLINICAL INFORMATION: TIA expressive aphasia COMPARISON: None. TECHNIQUE:Sagittal T1 FLAIR, T2 FLAIR propeller, delayed diffusion, and ADC weighted images were acquired. FINDINGS: The ventricles, sulci, fissures and cisterns are symmetrically enlarged compatible with mild age-related atrophy. No Extra-axial fluid collections or mass are appreciated. Scattered chronic ischemic foci in the cerebral white matter are expected for age. There are no regions of restricted diffusion, edema, mass effect or hemorrhage. Signal void in intracerebral arteries, extra-axial cranial nerves, pituitary and orbits are normal. Moderate mucosal thickening left maxillary sinus appreciated IMPRESSION: Mild atrophy and scattered chronic ischemic foci in the deep cerebral white matter-typical for age. No evidence of acute infarct. Mild left maxillary sinusitis Interpreted and Authenticated by: Reid Saravia 12/23/20
--- NOTE | 2020-12-23 13:01 | Internal Med Progress Note ---
SUBJECTIVE Subjective Patient information: Note initiated : 12/23/20 at 12:54 pm Service Date, if different from initiated Date: [] Patient: Itzel Buckley 75 y/o F admitted on 12/22/20 for aphasia this am @ 1100 this AM. Chief Complaint: [] Interval history: History of present illness: Ms. Charles Mccoy is a 75 year old female with a history of hypertension, type II diabetes mellitus, rheumatoid arthritis, coronary artery disease s/p stent, thalassemia minor, obstructive sleep apnea currently no on CPAP who presented to the ED for expressive aphasia that started this morning at about 10:30 AM and lasted about one hour. Yesterday the patient had a milder episode, she also had some difficulty walking that resolved. The patient is accompanied by her daughter who witnessed the expressive aphasia today. In the ED, the patient had a noncontrast CT head which did not show any acute changes, there was mild atrophy and chronic ischem ic changes in the deep cerebral white matter expected for age. A chest x-ray was negative. CBC and chemistry panel were similar to prior results. The patient does not have a history of stroke, she says that she takes a daily aspirin 325 mg per day. She denies palpitations, chest pain, lightheadedness. She did have a recent headache that resolved. Hospital medicine was asked to admit the patient for TIA evaluation. We discussed the usual work-up for TIA, the patient is not sure if she wants to have an MRI brain due to cost. She is okay with echo and carotid artery ultrasound as well as a engine monitor. *Discussed antiplatelet management with neurology at [place], recommended A spirin 81 mg daily and Plavix 75 mg daily for 21 days then continuing with either Aspirin or Plavix monotherapy. 12/24 Constitutional Vitals: Vital Signs Temp Pulse Resp BP Pulse Ox 98.3 F 71 14 118/87 96 12/23/20 12:39 12/23/20 12:39 12/23/20 12:39 12/23/20 12:39 12/23/20 12:39 Period Temp Pulse Resp BP Sys/Wolfe Pulse Ox Last 24 Hr 97.1 F-98.3 F 64-86 11-22 105-176/64-105 92-100 Intake and Output 12/22/20 12/23/20 12/23/20 21:59 05:59 13:59 Intake Total 480 360 Output Total 300 300 100 Balance -300 180 260 Weight 65.091 kg Intake & Output: Intake & Output 12/22/20 12/23/20 12/23/20 21:59 05:59 13:59 Intake Total 480 360 Output Total 300 300 100 Balance -300 180 260 Weight 65.091 kg Intake: Oral 480 360 Output: Void Amount 300 300 100 Other: Meal Breakfast Percent of Meal Consumed 75% Feeding Ability Independent Urine Appearance Clear Clear Clear Urine Color Bright Yellow Dark Yellow Bright Yellow Exam: General: Alert, Awake, No acute Distress Eyes/N/T: EOMI, Head/Neck: neck supple, CV: RRR, No murmurs, Pulm: Clear b/l, no wheezing/rhonchi/rales Abd: soft, nontender, +BS x4 Ext: no clubbing/cyanosis/edema Neuro: Alert, moves all extremities, follows commands Skin: warm/dry OBJ DATA Labs CBC & Chem 7: 12/22/20 15:37 12/23/20 05:31 Labs: Abnormal Lab Results 12/23/20 12/22/20 12/22/20 05:31 15:40 15:37 RBC 5.48 H MCV 68.8 L MCH 21.4 L RDW 16.4 H [place] % (Auto) 18.9 H [place] # (Auto) 1.04 H Glucose Uric Acid 1.9 L Urine Glucose (UA) >=500 A Urine Mucus Few A 12/22/20 15:07 RBC MCV MCH RDW [place] % (Auto) [place] # (Auto) Glucose 111 H Uric Acid Urine Glucose (UA) Urine Mucus Meds: Medications Acetaminophen (Acetaminophen 325 Mg Tablet) 650 mg PO Q6HP PRN; Protocol PRN Reason: Per Pain Protocol/Fever > 101 Last Admin: 12/23/20 08:36 Dose: 650 mg Documented by: Aspirin (Aspirin 81 Mg Tab.Chew) 81 mg PO QDAY [facility] Last Admin: 12/23/20 08:37 Dose: 81 mg Documented by: Clopidogrel Bisulfate (Clopidogrel 75 Mg Tablet) 75 mg PO DAILY [facility] Last Admin: 12/23/20 08:37 Dose: 75 mg Documented by: Docusate Sodium (Docusate Sodium 100 Mg Capsule) 100 mg PO BID [facility] Last Admin: 12/23/20 08:38 Dose: Not Given Documented by: Enoxaparin Sodium (Enoxaparin 40 Mg/0.4 Ml Syringe) 40 mg SQ DAILY [facility] Last Admin: 12/23/20 08:37 Dose: 40 mg Documented by: Furosemide (Furosemide 20 Mg Tablet) 20 mg PO QAM [facility] Last Admin: 12/23/20 08:37 Dose: 20 mg Documented by: Labetalol HCl (Labetalol 5 Mg/Ml Ml) 10 mg IV Q10M PRN PRN Reason: Hypertension Lactulose (Lactulose 20 Gm/30 Ml Oral.Adenike) 10 gm PO DAILYP PRN PRN Reason: Constipation Leflunomide (Leflunomide 20 Mg Tablet) 20 mg PO QDAY [facility] Last Admin: 12/23/20 11:13 Dose: Not Given Documented by: Losartan Potassium (Losartan 25 Mg Tablet) 25 mg PO BID [facility] Last Admin: 12/23/20 10:38 Dose: 25 mg Documented by: Nitroglycerin (Nitroglycerin 0.4 Mg Tab.Subl) 0.4 mg SL Q5M PRN PRN Reason: Chest Pain Ondansetron HCl (Ondansetron 4 Mg/2 Ml Vial) 4 mg IV Q4HP PRN; Protocol PRN Reason: Nausea And Vomiting Empagliflozin 10 Mg (Tablet) 1 dose PO QDAY [facility] Last Admin: 12/23/20 10:06 Dose: Not Given Documented by: Potassium Chloride (Potassium Chloride 10 Meq Tablet) 10 meq PO QDAY [facility] Last Admin: 12/23/20 08:37 Dose: 10 meq Documented by: Senna (Sennosides 1 Tablet) 2 tab PO HSP PRN PRN Reason: Constipation Simvastatin (Simvastatin 40 Mg Tablet) 40 mg PO HS [facility] Last Admin: 12/22/20 21:45 Dose: 40 mg Documented by: Sodium Chloride (0.9 % Sodium Chloride 10 Ml Syringe) 10 ml IV Q8 [facility] Last Admin: 12/23/20 06:21 Dose: 10 ml Documented by: A/P Narrative A/P Narrative: Assessment: #TIA vs small ischemic stroke w/Resolved expressive aphasia & ataxia: -MRI with mild atrophy and chronic ischemic changes but no acute infarct -CTA head/neck unremarkable #Hypertension #Diabetes mellitus: A1c 5.9 #CAD s/p stents, stable #Rheumatoid arthritis #Obstructive sleep apnea not on CPAP at home Plan: -PCU status for neuro checks/NIH Stroke Scale -Plavix/ASA per neurology at [place], recommended Aspirin 81mg/Plavix 75mg x21 days then monotherapy with either -Continue home Pravastatin. 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
--- NOTE | 2020-12-23 13:02 | Discharge Summary ---
Discharge Provider Provider Patient information: Note initiated : 12/23/20 at 1:01 pm Service Date, if different from initiated Date: [] Patient: Itzel Buckley 75 y/o F admitted on 12/22/20 for aphasia this am @ 1100 this AM. Chief Complaint: [] Date of admission: 12/22/20 19:43 Discharge date: 12/24/20 Primary care physician: Esvin Castro MD Consults: 12/22/20 Consult to Physician [CONS] Stat Comment: Consulting Provider: Robert Andres Reason For Exam: Physician to Consult 12/22/20 15:50 Consult to Physician [CONS] Stat Comment: Consulting Provider: Jorge Luis Montoya Reason For Exam: Physician to Consult Discharge Meds Discharge Medications Home Medications losartan 25 mg PO BID 06/16/19 [History Confirmed 12/22/20 Last Taken 12/22/20 08:00] pravastatin 80 mg PO HS 06/16/19 [History Confirmed 12/22/20 Last Taken 12/21/20 21:00] conjugated estrogens 0.625 mg/gram vaginal cream 0.625 mg VAGINAL QDAY #30 g 12/08/20 [Rx Confirmed 12/22/20 Last Taken Unknown] folic acid 2,000 mg PO QAM 12/08/20 [History Confirmed 12/22/20 Last Taken 12/22/20 08:00] leflunomide 20 mg tablet 20 mg PO QDAY tab 12/08/20 [History Confirmed 12/22/20 Last Taken 12/22/20 08:00] nitroglycerin 0.4 mg sublingual tablet 0.4 mg SUBLINGUAL Q5-15M PRN tab 12/08/20 [History Confirmed 12/22/20 Last Taken Unknown] potassium chloride 10 mEq tablet,extended release 10 meq PO QDAY tab 12/08/20 [History Confirmed 12/22/20 Last Taken 12/22/20 08:00] Jardiance 10 mg PO DAILY 12/22/20 [History Confirmed 12/22/20 Last Taken 12/22/20 08:00] arginine (L-arginine) 500 mg PO QDAY 12/22/20 [History Confirmed 12/22/20 Last Taken 12/22/20 08:00] carvedilol 12.5 mg PO BID 12/22/20 [History Confirmed 12/23/20 Last Taken 12/22/20 08:00] furosemide [Lasix] 20 mg PO QAM 12/22/20 [History Confirmed 12/22/20 Last Taken 12/22/20 08:00] aspirin 81 mg PO QDAY #21 tab 12/23/20 [Rx Last Taken Unknown] clopidogrel 75 mg PO DAILY #60 tab 12/23/20 [Rx Last Taken Unknown] COURSE Hospital Course Hospital course: History of present illness: Ms. Charles Mccoy is a 75 year old female with a history of hypertension, type II diabetes mellitus, rheumatoid arthritis, coronary artery disease s/p stent, thalassemia minor, obstructive sleep apnea currently no on CPAP who presented to the ED for expressive aphasia that started this morning at about 10:30 AM and lasted about one hour. Yesterday the patient had a milder episode, she also had some difficulty walking that resolved. The patient is accompanied by her daughter who witnessed the expressive aphasia today. In the ED, the patient had a noncontrast CT head which did not show any acute changes, there was mild atrophy and chronic ischemic changes in the deep cerebral white matter expected for age. A chest x-ray was negative. CBC and chemistry panel were similar to prior results. The patient does not have a history of stroke, she says that she takes a daily aspirin 325 mg per day. She denies palpitations, chest pain, lightheadedness. She did have a recent headache that resolved. Hospital medicine was asked to admit the patient for TIA evaluation. We discussed the usual work-up for TIA, the patient is not sure if she wants to have an MRI brain due to cost. She is okay with echo and carotid artery ultrasound as well as a press bucker. *Discussed antiplatelet management with neurology at [facility], recommended Aspirin 81 mg daily and Plavix 75 mg daily for 21 days then continuing with either Aspirin or Plavix monotherapy. 12/24 Patient doing well. No new complaints. Patient desiring to discharge. Assessment: #TIA vs small ischemic stroke w/Resolved expressive aphasia & ataxia: -MRI with mild atrophy and chronic ischemic changes but no acute infarct -CTA head/neck unremarkable #Hypertension #Diabetes mellitus: A1c 5.9 #CAD s/p stents, stable #Rheumatoid arthritis #Obstructive sleep apnea not on CPAP at home Plan: -PCU status for neuro checks/NIH Stroke Scale -Plavix/ASA per neurology at [facility], recommended Aspirin 81mg/Plavix 75mg x21 days then monotherapy with either -outpt press bucker if no afib/flutter found in hospital Discharge diagnosis: TIA versus small stroke with expressive aphasia Secondary discharge diagnosis: Hypertension diabetes CAD rheumatoid arthritis obstructive sleep apnea Time Spent with Patient Time attestation: Total time spent providing and/or coordinating discharge services: Time spent: Greater than 30 minutes EXAM Constitutional Vitals: Temp Pulse Resp BP Pulse Ox 98.3 F 71 14 118/87 96 12/23/20 12:39 12/23/20 12:39 12/23/20 12:39 12/23/20 12:39 12/23/20 12:39 Discharge Data Data Completed and Pending Labs on day of discharge: Labs from last 24 hours 12/23/20 12/22/20 12/22/20 05:31 15:40 15:37 WBC RBC Hgb Hct MCV MCH MCHC RDW Plt Count MPV Neut % (Auto) Lymph % (Auto) [place] % (Auto) Eos % (Auto) Baso % (Auto) Lymph # (Auto) [place] # (Auto) Eos # (Auto) Baso # (Auto) Absolute Neutrophils Sodium 139 Potassium 3.9 Chloride 105 Carbon Dioxide 24 Anion Gap 10.0 BUN 18 Creatinine 0.6 GFR Calculation 89 Glucose 93 Uric Acid 1.9 L Calcium 8.9 Phosphorus 2.9 Magnesium 2.1 Total Bilirubin 0.2 Direct Bilirubin < 0.2 GGT 16 AST 13 ALT 13 Alkaline Phosphatase 70 Lactate Dehydrogenase 146 Troponin T < 0.01 Total Protein 6.2 Albumin 3.9 Globulin 2.3 Albumin/Globulin Ratio 1.7 Triglycerides 82 Cholesterol 170 LDL Cholesterol, Calc 94 Non-HDL Cholesterol 110 HDL Cholesterol 60 Urine Color Straw Urine Appearance Clear Urine pH 6.0 Ur Specific [place] 1.014 Urine Protein Negative Urine Glucose (UA) >=500 A Urine Ketones Negative Urine Occult Blood Negative Urine Nitrate Negative Urine Bilirubin Negative Urine Urobilinogen Negative Ur Leukocyte Esterase Negative Urine RBC 0 Urine WBC < 1 Ur Squamous Epith Cells < 1 Urine Bacteria None Urine Mucus Few A Ur Culture Indicated? No 12/22/20 12/22/20 15:37 15:07 WBC 5.5 RBC 5.48 H Hgb 11.7 Hct 37.7 MCV 68.8 L MCH 21.4 L MCHC 31.0 RDW 16.4 H Plt Count 166 MPV Neut % (Auto) 46.3 Lymph % (Auto) 29.5 [place] % (Auto) 18.9 H Eos % (Auto) 3.8 Baso % (Auto) 1.5 Lymph # (Auto) 1.62 [place] # (Auto) 1.04 H Eos # (Auto) 0.21 Baso # (Auto) 0.08 Absolute Neutrophils 2.54 Sodium 139 Potassium 3.6 Chloride 101 Carbon Dioxide 24 Anion Gap 14.0 BUN 16 Creatinine 0.7 GFR Calculation 85 Glucose 111 H Uric Acid Calcium 9.2 Phosphorus Magnesium Total Bilirubin 0.2 Direct Bilirubin GGT AST 17 ALT 17 Alkaline Phosphatase 91 Lactate Dehydrogenase Troponin T Total Protein 6.8 Albumin 4.1 Globulin 2.7 Albumin/Globulin Ratio 1.5 Triglycerides Cholesterol LDL Cholesterol, Calc Non-HDL Cholesterol HDL Cholesterol Urine Color Urine Appearance Urine pH Ur Specific [place] Urine Protein Urine Glucose (UA) Urine Ketones Urine Occult Blood Urine Nitrate Urine Bilirubin Urine Urobilinogen Ur Leukocyte Esterase Urine RBC Urine WBC Ur Squamous Epith Cells Urine Bacteria Urine Mucus Ur Culture Indicated? Discharge Plan Patient/Caregiver Discharge Instructions Activity: increase activity as tolerated Diet: Consistent Carbohydrate Instructions: Aspirin (By mouth), Clopidogrel (By mouth), Transient Ischemic Attack (GEN) Activity Restrictions/Additional Instructions: set-up outpt press bucker. will determine was is available with RT, (Holter or event monitor) Prescriptions: New clopidogrel 75 mg Tablet 75 mg PO DAILY Qty: 60 RF: 0 aspirin 81 mg Tablet,Chewable 81 mg PO QDAY Qty: 21 RF: 0 Continued potassium chloride 10 mEq tablet extended release 10 meq PO QDAY RF: 0 nitroglycerin 0.4 mg tablet, sublingual 0.4 mg sublingual Q5-15M PRN (Reason: chest pain) RF: 0 leflunomide 20 mg tablet 20 mg PO QDAY RF: 0 folic acid 2,000 mg PO QAM RF: 0 Premarin 0.625 mg/gram cream 0.625 mg vaginal QDAY Qty: 30 RF: 0 losartan 25 MG tablet 25 mg PO BID RF: 0 pravastatin 40 MG tablet 80 mg PO HS RF: 0 carvedilol 25 mg Tablet 12.5 mg PO BID RF: 0 furosemide [Lasix] 20 mg Tablet 20 mg PO QAM RF: 0 Jardiance 10 mg Tablet 10 mg PO DAILY RF: 0 arginine (L-arginine) 500 mg Tablet 500 mg PO QDAY RF: 0 Discontinued aspirin [Aspir-81] 81 mg Tablet,Delayed Release (Dr/Ec) 325 mg PO QDAY RF: 0 Follow Up Plan Follow up with: Enedelia Harding ARNP [Physician] - (The office will call you to schedule an appointment) Esvin Castro MD [Primary Care Provider] - 01/04/21 1:45 pm (This appointment will be with Mark Starr as Esvin Castro is out of the office.) Patient Disposition: Home, Self-Care Prognosis: Fair Overall status at discharge: patient is progressing back to baseline Discharge Orders: Discharge Order (Routine); Ordered 12/24/20 Ordered By: Ron Hilario [facility] VTE Deep Vein Thrombosis/Pulmonary Embolism Present on Admission: No
--- NOTE | 2020-12-23 15:10 | Cat Scan Report ---
CLINICAL INFORMATION: TIA COMPARISON: None. TECHNIQUE: 80 cc of Isovue-370 were injected intravenously , and using SmartPrep to maximize cerebral arterial opacification, 0.625 mm helical slices were obtained from the skull base through the cerebral vertex. Following reconstruction , sagittal, coronal and axial reformatted images were processed and reviewed at multiple windows and levels. 3D volume rendered and MIP images were acquired at a independent workstation. The exam was performed using radiation dose optimization techniques including, but not limited to, automated exposure control, adjustment of the mA and/or kV according to patient size and use of iterative reconstruction technique. FINDINGS: The intracranial internal carotid, vertebral, basilar, anterior, middle and posterior cerebral arteries and their branches are well-opacified and normal in contour and caliber without significant stenosis, occlusion or other pathology. Superficial/deep cerebral veins and deep venous sinuses are widely patent IMPRESSION: Normal exam Interpreted and Authenticated by: Reid Saravia 12/23/20
--- NOTE | 2020-12-23 15:16 | Cat Scan Report ---
CLINICAL INFORMATION: TIA COMPARISON: None. TECHNIQUE: 80 cc of Isovue-300 were injected intravenously followed by 40 cc of normal saline flush. Using SmartPrep, 0.625 helical slices were obtained from the thoracic aortic arch through the [place] of [place]. Following reconstruction, 2.5 mm sagittal, coronal and axial reformatted images were processed. MIPS , 3-D volume rendering and CPR images were also constructed. The exam was performed using radiation dose optimization techniques including, but not limited to, automated exposure control, adjustment of the mA and/or kV according to patient size and use of iterative reconstruction technique. FINDINGS: The thoracic aortic arch is normal diameter with minimal intimal thickening and conventional aortic branching. Moderate fibrofatty calcific plaque in both carotid bifurcations noted, but it does not result in stenosis. The common internal/external carotid arteries are widely patent. The brachiocephalic, both subclavian, and both vertebral arteries are widely patent without significant abnormality. No soft tissue abnormality. IMPRESSION: Fibrofatty and calcific plaque in both carotid bifurcations which does not result in stenosis. Interpreted and Authenticated by: Reid Saravia 12/23/20
[2020-12-23] MEDS ORDERED: CARVEDILOL 12.5 MG TABLET PO SCH (17:30)
--- NOTE | 2020-12-23 19:41 | EKG ---
[facility] Test Date: 2020-12-22 Pat Name: Itzel Mccoy Department: ED Room: Gender: Female Watchstander: aw : 1945 Requested By: Zoltan Hernandez Order Number: [id number] Reading MD: Maxx Juan Measurements Intervals [place] Rate: 71 P: 56 MT: 180 QRS: 50 QRSD: 92 T: 65 QT: 385 QTc: 419 Interpretive Statements Sinus rhythm Inferior Q waves Electronically Signed On 12-23-2020 19:41:22 PDT by Maxx Juan /store/[email or web address]/[id number]
[2020-12-23] MEDS: SIMVASTATIN 40 MG TABLET PO SCH (21:10)
[2020-12-24] MEDS: ACETAMINOPHEN 325 MG TABLET PO PRN (03:38)
[2020-12-24] MEDS: 0.9 % SODIUM CHLORIDE 10 ML SYRINGE IV SCH (05:06)
--- NOTE | 2020-12-24 07:33 | Internal Med Progress Note ---
SUBJECTIVE Subjective Patient information: Note initiated : 12/24/20 at 7:30 am Service Date, if different from initiated Date: [] Patient: Itzel Buckley 75 y/o F admitted on 12/22/20 for aphasia this am @ 1100 this AM. Chief Complaint: [] Interval history: History of present illness: Ms. Charlse Mccoy is a 75 year old female with a history of hypertension, type II diabetes mellitus, rheumatoid arthritis, coronary artery disease s/p stent, thalassemia minor, obstructive sleep apnea currently no on CPAP who presented to the ED for expressive aphasia that started this morning at about 10:30 AM and lasted about one hour. Yesterday the patient had a milder episode, she also had some difficulty walking that resolved. The patient is accompanied by her daughter who witnessed the expressive aphasia today. In the ED, the patient had a noncontrast CT head which did not show any acute changes, there was mild atrophy and chronic ischemi c changes in the deep cerebral white matter expected for age. A chest x-ray was negative. CBC and chemistry panel were similar to prior results. The patient does not have a history of stroke, she says that she takes a daily aspirin 325 mg per day. She denies palpitations, chest pain, lightheadedness. She did have a recent headache that resolved. Hospital medicine was asked to admit the patient for TIA evaluation. We discussed the usual work-up for TIA, the patient is not sure if she wants to have an MRI brain due to cost. She is okay with echo and carotid artery ultrasound as well as a school lunch monitor. *Discussed antiplatelet management with neurology at [facility], recommended Aspirin 81 mg daily and Plavix 75 mg daily for 21 days then continuing with either Aspirin or Plavix monotherapy. 12/24 No overnight event or new complaints. Patient desired to discharge. Will discuss with RT regarding school lunch monitor is available. Constitutional Vitals: Vital Signs Temp Pulse Resp BP Pulse Ox 98.4 F 63 18 97/74 94 12/24/20 04:01 12/24/20 06:01 12/24/20 06:01 12/24/20 06:01 12/24/20 06:01 Period Temp Pulse Resp BP Sys/Wolfe Pulse Ox Last 24 Hr 97.2 F-98.4 F 57-77 11- 97-176/68-99 92-100 Intake and Output 12/23/20 12/24/20 12/24/20 21:59 05:59 13:59 Intake Total 240 360 Output Total 800 Balance 240 360 -800 Weight 65.346 kg Intake & Output: Intake & Output 12/23/20 12/24/20 12/24/20 21:59 05:59 13:59 Intake Total 240 360 Output Total 800 Balance 240 360 -800 Weight 65.346 kg Intake: Oral 240 360 Output: Void Amount 800 Other: Meal snack Percent of Meal Consumed 100% Urine Appearance Clear Urine Color Bright Yellow OBJ DATA Labs CBC & Chem 7: 12/22/20 15:37 12/23/20 05:31 Labs: Abnormal Lab Results 12/23/20 12/22/20 12/22/20 05:31 15:40 15:37 RBC 5.48 H MCV 68.8 L MCH 21.4 L RDW 16.[address] [place] % (Auto) 18.[address] [place] # (Auto) 1.04 H Glucose Uric Acid 1.9 L Urine Glucose (UA) >=500 A Urine Mucus Few A 12/22/20 15:07 RBC MCV MCH RDW [place] % (Auto) [place] # (Auto) Glucose 111 H Uric Acid Urine Glucose (UA) Urine Mucus Meds: Medications Acetaminophen (Acetaminophen 325 Mg Tablet) 650 mg PO Q6HP PRN; Protocol PRN Reason: Per Pain Protocol/Fever > 101 Last Admin: 12/24/20 03:38 Dose: 650 mg Documented by: Aspirin (Aspirin 81 Mg Tab.Chew) 81 mg PO QDAY [facility] Last Admin: 12/23/20 08:37 Dose: 81 mg Documented by: Clopidogrel Bisulfate (Clopidogrel 75 Mg Tablet) 75 mg PO DAILY [facility] Last Admin: 12/23/20 08:37 Dose: 75 mg Documented by: Docusate Sodium (Docusate Sodium 100 Mg Capsule) 100 mg PO BID [facility] Last Admin: 12/23/20 21:01 Dose: Not Given Documented by: Enoxaparin Sodium (Enoxaparin 40 Mg/0.4 Ml Syringe) 40 mg SQ DAILY [facility] Last Admin: 12/23/20 08:37 Dose: 40 mg Documented by: Furosemide (Furosemide 20 Mg Tablet) 20 mg PO QAM [facility] Last Admin: 12/23/20 08:37 Dose: 20 mg Documented by: Labetalol HCl (Labetalol 5 Mg/Ml Ml) 10 mg IV Q10M PRN PRN Reason: Hypertension Lactulose (Lactulose 20 Gm/30 Ml Oral.Adenike) 10 gm PO DAILYP PRN PRN Reason: Constipation Leflunomide (Leflunomide 20 Mg Tablet) 20 mg PO QDAY [facility] Last Admin: 12/23/20 11:13 Dose: Not Given Documented by: Losartan Potassium (Losartan 25 Mg Tablet) 25 mg PO BID [facility] Last Admin: 12/23/20 21:10 Dose: 25 mg Documented by: Nitroglycerin (Nitroglycerin 0.4 Mg Tab.Subl) 0.4 mg SL Q5M PRN PRN Reason: Chest Pain Ondansetron HCl (Ondansetron 4 Mg/2 Ml Vial) 4 mg IV Q4HP PRN; Protocol PRN Reason: Nausea And Vomiting Empagliflozin 10 Mg (Tablet) 1 dose PO QDAY [facility] Last Admin: 12/23/20 10:06 Dose: Not Given Documented by: Potassium Chloride (Potassium Chloride 10 Meq Tablet) 10 meq PO QDAY [facility] Last Admin: 12/23/20 08:37 Dose: 10 meq Documented by: Senna (Sennosides 1 Tablet) 2 tab PO HSP PRN PRN Reason: Constipation Simvastatin (Simvastatin 40 Mg Tablet) 40 mg PO HS [facility] Last Admin: 12/23/20 21:10 Dose: 40 mg Documented by: Sodium Chloride (0.9 % Sodium Chloride 10 Ml Syringe) 10 ml IV Q8 [facility] Last Admin: 12/24/20 05:06 Dose: 10 ml Documented by: A/P Narrative A/P Narrative: Assessment: #TIA vs small ischemic stroke w/Resolved expressive aphasia & ataxia: -MRI with mild atrophy and chronic ischemic changes but no acute infarct -CTA head/neck unremarkable #Hypertension #Diabetes mellitus: A1c 5.9 #CAD s/p stents, stable #Rheumatoid arthritis #Obstructive sleep apnea not on CPAP at home Plan: -Plavix/ASA per neurology at [facility], recommended Aspirin 81mg/Plavix 75mg x21 days then monotherapy with either -Continue home Pravastatin. -Permissive blood pressure for now, Labetalol IV prn for extreme BP -Continue home Jardiance, Lasix, Leflunomide, Imdur, and Nitro prn -restart home Coreg and Losartan gradually -TTE pending -laboratory monitor -outpt school lunch monitor if no afib/flutter found in hospital -DVT ppx: Lovenox Code status: Development Technical Lead Spent With Patient Time: Total time spent is greater than 50% in coordination of care (as documented) at patient's floor/unit and/or counseling patient: QUALITY Stroke Symptom Onset Unknown: No VTE Deep Vein Thrombosis/Pulmonary Embolism Present on Admission: No
[2020-12-24] MEDS: CLOPIDOGREL 75 MG TABLET PO SCH (08:43)
[2020-12-24] MEDS: DOCUSATE SODIUM 100 MG CAPSULE PO SCH (08:43)
[2020-12-24] MEDS: POTASSIUM CHLORIDE 10 MEQ TABLET PO SCH (08:43)
[2020-12-24] MEDS: FUROSEMIDE 20 MG TABLET PO SCH (08:43)
[2020-12-24] MEDS: ASPIRIN 81 MG TAB.CHEW PO SCH (08:43)
[2020-12-24] MEDS: LEFLUNOMIDE 20 MG TABLET PO SCH (08:43)
[2020-12-24] MEDS: ENOXAPARIN 40 MG/0.4 ML SYRINGE SQ SCH ×2 (08:43→09:15)
[2020-12-24] MEDS: Empagliflozin 10 mg tablet PO SCH (08:44)
[2020-12-24] MEDS ORDERED: ARGININE 500 MG PO SCH (09:00)
== END 2020-12-24 09:25 | disposition home or self-care (01) | DRG 69 ==
LOC: ED 14:45 → OBSVTOIN 19:43 → INTOOBSV 19:43 → ICU 19:43
PROVIDERS: ADMIT Internal Medicine; ATTEND Internal Medicine